=== PATIENT | female | born 1980 | race Caucasian/White ===

== ENCOUNTER 2019-06-01 00:06 | Day surgery (SDC) | payer BC, SELFPAY ==
[2019-05-26 13:32] VITALS: BMI 46.3
[2019-06-01 06:45] VITALS: BP 141/89; PULSE 86; RESP 16; TEMP 36.9; O2SAT 100
[2019-06-01 06:56] LABS: Glucose Point of Care 110 (65-105)
--- NOTE | 2019-06-01 07:15 | PM.HPGS ---
History of Present Illness History of Present Illness Consent: Risks, benefits, and alternatives have been discussed and questions answered. Patient agrees to proceed with procedure. Chief complaint: Neoplasm Screening Narrative: Flavio Bernabe is a 38 year old female With a history of polyps 1 of which was a broad sessile cecal polyp 2 years ago [facility] Family History Family History Mother Hypertension Family history of elevated blood lipids Diabetes mellitus Family history of hypercholesterolemia Family history of gynecological problem Father Family history of diabetes mellitus in first degree relative Diabetes mellitus Carcinoma of colon Other Cerebrovascular accident Family history of allergic disorder Family history of malignant neoplasm Social History Social History Smoking status: Never smoker Alcohol intake: never Meds Home Medications and Allergies Home Medications Medication Instructions Recorded Confirmed Type candesartan 32 1 tablet PO DAILY #90 tablet 02/07/19 06/01/19 Rx mg-hydrochlorothiazide 25 mg tablet icosapent ethyl 1 gram capsule 2 gm PO BID #360 cap 03/24/19 06/01/19 Rx omeprazole magnesium 20 mg 20 mg PO DAILY 03/24/19 06/01/19 History tablet,delayed release sitagliptin 50 mg-metformin 500 mg 1 tablet PO DAILY tablet 03/24/19 06/01/19 History tablet venlafaxine 150 mg 150 mg PO DAILY 03/24/19 06/01/19 History capsule,extended release 24 hr carvedilol 25 mg tablet 25 mg PO BID #180 tablet 05/11/19 06/01/19 Rx Allergies Allergy/AdvReac Type Severity Reaction Status Date / Time CHANDLER Inhibitors Allergy Unknown Unknown Verified 06/01/19 06:43 amoxicillin Allergy Unknown Unknown Verified 06/01/19 06:43 Penicillins Allergy Unknown HIVES Verified 06/01/19 06:43 quinapril Allergy Unknown uknown Verified 06/01/19 06:43 Vital Signs Vital Signs - 24 hr 06/01/19 06:45 Temperature 36.9 C Pulse Rate 86 Respiratory Rate 16 Blood Pressure 141/89 H Pulse Oximetry 100 Exam Resp: Auscultation: clear to auscultation bilaterally Cardio: Rate: regular rate Rhythm: regular rhythm GI: GI Palp: Yes Soft to palpation and No Tenderness to palpation present (GI) Assessment and Plan Assessment and plan (1) History of colon polyps: Code(s): Z86.010 - Personal history of colonic polyps Status: Acute Assessment and Plan: Colonoscopy with possible biopsy or polypectomy or cautery or injection of substances.
[2019-06-01] MEDS: LACTATED RINGERS 1,000 ML 150 ML IV CONT (07:17)
--- NOTE | 2019-06-01 07:20 | WPDANESEPPF ---
Anes - Initial Pre Proc Eval Procedure: Operation Date: 06/01/19 07:30 Proposed Procedures p Screening Colonoscopy - Syed Rhodes MD Date/Time: 06/01/19 07:20 Surgeon: Syed Rhodes MD Pre Op Diagnosis: Neoplasm Screening Patient Data Age: 38 Gender: F Height: 5 ft 7 in Weight: 134.9 kg Last Vital Signs Temp 98.4 F 06/01/19 06:45 Pulse 86 06/01/19 06:45 Resp 16 06/01/19 06:45 BP 141/89 H 06/01/19 06:45 Pulse Ox 100 06/01/19 06:45 Allergies Allergy/AdvReac Type Severity Reaction Status Date / Time CHANDLER Inhibitors Allergy Unknown Unknown Verified 06/01/19 06:43 amoxicillin Allergy Unknown Unknown Verified 06/01/19 06:43 Penicillins Allergy Unknown HIVES Verified 06/01/19 06:43 quinapril Allergy Unknown uknown Verified 06/01/19 06:43 Home Medications Medication Instructions Recorded Confirmed Type candesartan 32 1 tablet PO DAILY #90 tablet 02/07/19 06/01/19 Rx mg-hydrochlorothiazide 25 mg tablet icosapent ethyl 1 gram capsule 2 gm PO BID #360 cap 03/24/19 06/01/19 Rx omeprazole magnesium 20 mg 20 mg PO DAILY 03/24/19 06/01/19 History tablet,delayed release sitagliptin 50 mg-metformin 500 mg 1 tablet PO DAILY tablet 03/24/19 06/01/19 History tablet venlafaxine 150 mg 150 mg PO DAILY 03/24/19 06/01/19 History capsule,extended release 24 hr carvedilol 25 mg tablet 25 mg PO BID #180 tablet 05/11/19 06/01/19 Rx Laboratory Tests 06/01/19 06:53 POC Capillary Glucose 110 mg/dl mg/dl (65-105) Patient hx anesthesia problems: post op nausea/vomiting Family hx anesthesia problems: none PMFSH Past Medical History Medical History (Updated 06/01/19 @ 07:20 by Obey Carmona MD) Essential (primary) hypertension Gastroesophageal reflux disease without esophagitis Morbid obesity KARY on CPAP Type 2 diabetes mellitus without complication, without long-term current use of insulin Family History Family History Mother Hypertension Family history of elevated blood lipids Diabetes mellitus Family history of hypercholesterolemia Family history of gynecological problem Father Family history of diabetes mellitus in first degree relative Diabetes mellitus Carcinoma of colon Other Cerebrovascular accident Family history of allergic disorder Family history of malignant neoplasm Social History Social History Smoking status: Never smoker Alcohol intake: never Anes - Eval Final PreProcedure Day of Procedure 06/01/19 07:20 Patient weight: morbidly obese Heart: regular rate and rhythm Lungs: clear to auscultation Airway: Mallampati scale class II Neurological: alert and oriented Last oral intake: >/= 8 hours ASA classification: IV Emergent: no Anesthetic plan: proceed Anesthesia type and monitoring: general GIVS and standard monitoring Informed Consent: The patient's anesthetic plan and its attendant risks and benefits were discussed with the patient/family/POA. Questions were solicited and answers provided to the satisfaction of the patient/family/POA.
[2019-06-01 07:54] VITALS: BP 136/57; PULSE 86; RESP 16; O2SAT 100
[2019-06-01 08:04] VITALS: BP 121/64; PULSE 85; RESP 17; O2SAT 100
[2019-06-01 08:14] VITALS: BP 124/64; O2SAT 100
== END 2019-06-01 08:34 | disposition home or self-care (01) ==
PROVIDERS: PCP Internal Medicine; Visit Provider Internal Medicine Gastroenterology
PROC: 0DJD8ZZ Inspection of Lower Intestinal Tract, Via Natural or Artificial Opening Endoscopic (ICD-10-PCS; CPT 45378; principal; 2019-06-01 07:30)
DX: Z12.11 Encounter for screening for malignant neoplasm of colon (principal); D12.5 Benign neoplasm of sigmoid colon; I10 Essential (primary) hypertension; E11.9 Type 2 diabetes mellitus without complications; K21.9 Gastro-esophageal reflux disease without esophagitis; G47.33 Obstructive sleep apnea (adult) (pediatric); Z79.84 Long term (current) use of oral hypoglycemic drugs; E66.01 Morbid (severe) obesity due to excess calories; Z68.42 Body mass index [BMI] 45.0-49.9, adult
CPT/HCPCS: 45385; 88305; J2001; J2704; J7120

== ENCOUNTER 2019-07-08 12:03 | Outpatient (CLI) | payer BC, SELFPAY ==
--- NOTE | ~2019-07-08 | US_ITS ---
Please refer to diagnostic mammogram report dated 07/08/2019 for details. Reviewed, dictated and finalized at location A.
--- NOTE | ~2019-07-08 | MM_ITS ---
EXAMINATION: MM diagnostic yoan BI w zeenat HISTORY: Palpable right breast mass TECHNIQUE: Additional 3-D tomosynthesis images of the breasts were performed and synthetic 2-D images were generated. CAD analysis was submitted and interpreted. High resolution right breast ultrasound was performed. COMPARISON: None FINDINGS: MAMMOGRAPHIC FINDINGS: Breast composed of scattered areas of fibroglandular density. There are no suspicious masses, calcifi cations or architectural distortion in either breast to suggest malignancy. ULTRASOUND: Limited right breast ultrasound: In the area of palpable concern at 10:00, 10 cm from the nipple is a superficially located oval hyper echoic mass with some internal heterogeneity. This measures 1.9 x 1.4 x 0.6 cm. No internal vasculari ty or posterior features. IMPRESSION: 1. Oval hyperechoic superficially located mass of the right breast in the area of palpable concern wi thout mammographic correlate. This mass measures 1.9 x 1.4 x 0.6 cm and likely represents a benign li benji. 2. Recommend 6 month follow-up right breast ultrasound BI-RADS category 3, probably benign findings. Reviewed, dictated and finalized at location A. IMPRESSION: 1. Oval hyperechoic superficially located mass of the right breast in the area of palpable concern without mammographic correlate. This mass measures 1.9 x 1. 4 x 0.6 cm and likely represents a benign lipoma. 2. Recommend 6 month follow-up right breast ultrasound BI-RADS category 3, probably benign findings.
== END 2019-07-08 12:04 | disposition home or self-care (01) ==
LOC: ANHIMG 12:06
PROVIDERS: PCP Internal Medicine; Visit Provider Obstetrics & Gynecology
DX: N63.11 Unspecified lump in the right breast, upper outer quadrant (principal); R92.8 Other abnormal and inconclusive findings on diagnostic imaging of breast
CPT/HCPCS: 76642; 77062; 77066; G0279

== ENCOUNTER 2019-10-14 09:26 | Outpatient (CLI) | payer BC, SELFPAY ==
--- NOTE | 2019-10-19 12:29 | SLEEP_ITS ---
Home Sleep Study DATE OF STUDY: 10/14/2019 REASON FOR THIS STUDY: KARY. HISTORY: This patient is a 39-year-old female, 5 feet 8 inches tall weighing 300 pounds with a body mass index of 45.6. After gaining weight, she has been having increasing problems with her sleep. She is not refreshed when she awakens. She occasionally snores. She lives alone so she is not aware of others complain about it. Her grandmother has insomnia. She frequently has trouble sleeping if she has a cold. She does not gasp for breath at night. She rarely sweats excessively at night. She occasionally notices her heart pounding or beating irregularly at night. She frequently falls asleep during the day never involuntarily, never while driving, never with physical effort. She does not have loss of muscle tone with strong emotion. She frequently has daytime difficulty due to excessive sleepiness. She does not feel paralyzed on waking or falling asleep. She occasionally has vivid dreamlike scenes upon awakening or falling asleep. She is rarely afraid to go to sleep. She occasionally has nightmares, occasionally remembers her dreams, occasionally has racing thoughts, feelings of sadness, depression and anxiety. She does not have muscular tension or notices parts of her body jerking. She rarely kicks at night. She does not have crawling and aching feelings in her legs or have leg pain at night. She does not have morning jaw pain. She rarely grinds her teeth during sleep. She is not bothered by pain during the day or awakened by pain at night. She frequently wakes up feeling stiff in the morning with sore achy muscles. She has palpitations and takes antacids regularly. Bedtime is 10 p.m., sometimes taking up to 1 hour to fall asleep waking many times at night. When she does awaken, she will roll over, may wake up for 30 minutes to an hour. She wakes in the morning around 7 a.m. On the weekends, she may stay up an hour later and sleep quite a bit later. Sometimes, she sleeps all day. She frequently naps. A short nap is not refreshing. She is drowsy in the morning for 3 hours or longer. MEDICAL COMORBIDITIES: 1. Hypertension. 2. Diabetes mellitus. 3. Depression. 4. Acid reflux. 5. Panic. MEDICATIONS: 1. Janumet 50/500 daily. 2. Losartan/hydrochlorothiazide 100/25 daily. 3. Carvedilol 25 mg a day. 4. Effexor XR 150 mg a day. 5. Prilosec daily. HABITS: Never smoked tobacco. Caffeine, 2 servings a day. No alcohol. No recreational drugs. DESCRIPTION OF THE STUDY: On the [place] Sleepiness Scale, her score is 10. This was conducted as an unattended type 3 portable home sleep test using 4 channel monitoring including respiratory effort channel, snoring channel, oxygen saturation channel, and heart rate channel. The study was scored using [facility] guidelines. The duration was 5 hours 54 minutes. The apnea-hypopnea index was 0.5, normal. Oxygen desaturation index is 0.2. She had 2 apneas, both were obstructive. She had 1 hypopnea. She had 3060 snoring events and 1 desaturation. Lowest desaturation was 85%. She spent no time below 88%. Pulse ranged from 77 to 116. IMPRESSION: This portable home sleep test does not show evidence of significant sleep-disordered breathing. The apnea-hypopnea index is 0.5. She had transient desaturation to 85%. She had significant snoring over 3000 episodes. She has excessive daytime sleepiness that is out of proportion to the amount of sleep-disordered breathing on this test. Previously November 15, 2016, she had a nocturnal polysomnogram with mild obstructive sleep apnea with apnea-hypopnea index 5.4, but did not decide to move forward with treatment at that time, and on 11/15/2018, with a sleeping aid, her AHI was 3.7 and her REM
== END 2019-10-14 09:27 | disposition home or self-care (01) ==
LOC: ANHCSM 09:26
PROVIDERS: PCP Internal Medicine; Visit Provider Internal Medicine Critical Care Medicine
DX: G47.33 Obstructive sleep apnea (adult) (pediatric) (principal)
CPT/HCPCS: 95806

== ENCOUNTER → 2020-03-13 15:04 | Outpatient (CLI) | payer BC, SELFPAY ==
--- NOTE | ~2020-03-13 | US_ITS ---
US breast RT limited DATE: 03/13/2020 15:38 INDICATION: 10:00 right breast lump follow-up TECHNIQUE: High-resolution ultrasound imaging targeted at 9:00-11:00 10 cm from nipple COMPARISON: 07/08/2019 bilateral diagnostic digital mammogram and limited right breast ultrasound FINDINGS: No suspicious mass or any suspicious shadowing is detected. No cyst or other significant fi nding is noted. IMPRESSION: There is category 1: Negative Recommendation: Routine mammographic screening beginning at age 40 Reviewed, dictated and finalized at Location A. Reviewed, dictated and finalized at location A. IAL EDUCATION PROFESSIONAL
== END ==
PROVIDERS: PCP Internal Medicine; Visit Provider Obstetrics & Gynecology
DX: R92.8 Other abnormal and inconclusive findings on diagnostic imaging of breast (principal)
CPT/HCPCS: 76642

== ENCOUNTER 2020-06-16 07:27 | Outpatient (CLI) | payer BC, SELFPAY ==
--- NOTE | ~2020-06-16 | US_ITS ---
EXAMINATION: US abdomen limited DATE: 06/16/2020 07:49 INDICATION: Elevated liver function tests TECHNIQUE: Multiple grayscale and Doppler ultrasound images of the abdomen were obtained. COMPARISON: 06/11/2016 FINDINGS: The head and body of the pancreas are normal. The pancreatic tail is obscured by bowel gas. The liver demonstrates increased echogenicity, heterogenous echotexture, and decreased through trans mission. No surface nodularity. Normal hepatopetal flow in the main portal vein. The gallbladder is s urgically absent. The normal common bile duct measures 4 mm. IMPRESSION: 1. Diffuse hepatic steatosis. Reviewed, dictated and finalized at location A.
== END 2020-06-16 07:28 ==
LOC: MICIMG 07:28
PROVIDERS: Visit Provider Internal Medicine
DX: R79.89 Other specified abnormal findings of blood chemistry (principal); K76.0 Fatty (change of) liver, not elsewhere classified
CPT/HCPCS: 76705

== ENCOUNTER 2021-03-18 10:23 | Outpatient (CLI) | payer BC, SELFPAY ==
--- NOTE | ~2021-03-18 | XR_ITS ---
EXAMINATION: XR knee LT 3V DATE: 03/18/2021 10:42 INDICATION: Left knee pain. TECHNIQUE: 3 views of left knee including standing views were obtained. COMPARISON: None. FINDINGS: Bone alignment is normal. No fracture. There is mild tricompartment osteoarthritis. There i s a small knee joint effusion. IMPRESSION: 1. Mild left knee osteoarthritis. Reviewed, dictated and finalized at location A. E FARM AGENT
== END 2021-03-18 10:24 ==
PROVIDERS: PCP Internal Medicine; Visit Provider Internal Medicine
DX: M17.12 Unilateral primary osteoarthritis, left knee (principal)
CPT/HCPCS: 73562

== ENCOUNTER → 2022-05-17 08:56 | Outpatient (CLI) | payer BC, SELFPAY ==
--- NOTE | ~2022-05-17 | XR_ITS ---
XR sinus min 3V DATE: 05/17/2022 09:32 INDICATION: Disorder of nasal sinuses TECHNIQUE: todd Hamilton, lateral and submental vertical views COMPARISON: None FINDINGS: The paranasal sinuses and mastoid air cells appear normally developed and aerated. Rightward deviation of nasal septum. Normal sella turcica. Physiologic pineal calcification. IMPRESSION: Normal development and aeration of the paranasal sinuses and mastoid air cells Reviewed, dictated and finalized at location A. ACT LENS CURVE GRINDER IMPRESSION: Normal development and aeration of the paranasal sinuses and mastoi d air cells
--- NOTE | ~2022-05-17 | XR_ITS ---
XR chest 2V DATE: 05/17/2022 09:32 INDICATION: Cough TECHNIQUE: 2 views COMPARISON: None FINDINGS: Normal heart size. No hilar or mediastinal enlargement. No pulmonary infiltrate or consolid ation, pleural effusion or pulmonary vascular congestion or pneumothorax. Status post cholecystectomy. Included skeletal structures are unremarkable. IMPRESSION: No active cardiopulmonary disease Reviewed, dictated and finalized at location A. IGHT SLICING MACHINE OPERATOR
== END ==
PROVIDERS: PCP Internal Medicine; Visit Provider Internal Medicine
DX: R05.9 Cough, unspecified (principal); J34.89 Other specified disorders of nose and nasal sinuses; R09.81 Nasal congestion
CPT/HCPCS: 70220; 71046

== ENCOUNTER 2022-08-04 01:46 | Day surgery (SDC) | payer OTHER, SELFPAY ==
[2022-07-23 10:55] VITALS: BMI 47.6
[2022-08-04 06:48] VITALS: BP 142/89; PULSE 97; RESP 18; TEMP 36.1; O2SAT 100
[2022-08-04] MEDS: LACTATED RINGERS 1,000 ML 150 ML IV CONT (07:04)
[2022-08-04 07:05] LABS: Glucose Point of Care 110 mg/dl (65-105)
--- NOTE | 2022-08-04 07:17 | PM.HPGS ---
History of Present Illness History of Present Illness Consent: Risks, benefits, and alternatives have been discussed and questions answered. Patient agrees to proceed with procedure. Chief complaint: hx colon polyps, family hx colon ca Narrative: Flavio Bernabe is a 41 year old female With family history of colon cancer. She had 2 polyps removed by me 5 years ago. Then she had 1 adenoma removed about 3 years ago. Review of Systems Review of Systems: All systems reviewed & are unremarkable except as noted in HPI and below PMFSH Past Medical History Medical History Abnormal bowel movement Allergy to CHANDLER inhibitors Anxiety Arthritis Body mass index (BMI) 40.0-44.9, adult Body mass index (BMI) 45.0-49.9, adult Cough Diabetes mellitus Diarrhea Dyslipidemia Elevated C-reactive protein (CRP) Elevated LFTs Encounter for preventive health examination Encounter for routine adult health examination without abnormal findings Epicondylitis Epicondylitis, lateral Epigastric pain Essential (primary) hypertension Fatty liver Frequent headaches Gastroesophageal reflux disease without esophagitis GERD (gastroesophageal reflux disease) Hypersomnolence Hypertension Itchy skin Left knee pain Lump of right breast Microcytic anemia Morbid obesity Nausea and vomiting Non-restorative sleep On group home drug therapy KARY (obstructive sleep apnea) KARY on CPAP Osteoarthritis of left knee Rash in adult Stress Tinea Type 2 diabetes mellitus without complication, without long-term current use of insulin Surgical History Surgical History S/P appendectomy S/P carpal tunnel release S/P cholecystectomy S/P sinus surgery Family History Family History Mother Hypertension Family history of elevated blood lipids Diabetes mellitus Family history of hypercholesterolemia Family history of gynecological problem Depression Family history of thyroid disease Father Family history of diabetes mellitus in first degree relative Diabetes mellitus Carcinoma of colon Other Cerebrovascular accident Family history of allergic disorder Family history of malignant neoplasm Social History Social History Smoking status: Never smoker Second hand tobacco smoke exposure: No Alcohol intake: never Substance use: never Lack of Transportation: No Lack of Food: Never True Current Housing: I Have Housing Concerned About Future Housing: No Difficulty Paying Gas/Electric Bills: No Difficulty Paying for Meds: No Currently Unemployed: No Education: Bachelor's Degree Difficulty w/ Childcare or Family Care: No Living arrangements: with family Occupation/Education: occupation 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 Gender identity (if verbalized by the patient): Female Spiritual care concerns: No Meds Home Medications and Allergies Home Medications Medication Instructions Recorded Confirmed Type omeprazole magnesium 20 mg 20 mg PO DAILY 03/24/19 07/23/22 History tablet,delayed release (Prilosec OTC) desogestrel 0.15 mg-ethinyl 1 tablet PO DAILY 03/28/21 07/23/22 History estradiol 0.03 mg tablet (Apri) atorvastatin 10 mg tablet See Rx Instructions .Route 06/17/21 07/23/22 Rx .COMPLEX #90 tabs candesartan 32 1 tablet PO DAILY 12/03/21 07/23/22 History mg-hydrochlorothiazide 12.5 mg tablet cholecalciferol (vitamin D3) 50 50 mcg PO DAILY 12/03/21 07/23/22 History mcg (2,000 unit) capsule semaglutide 14 mg tablet (Rybelsus) See Rx Instructions .Route 05/07/22 07/23/22 Rx .COMPLEX #90 tabs carvedilol 25 mg tablet See Rx Instructions .Route 05/14/22 07/23/22 Rx .COMPLEX #180 tabs dapagliflozin 5 mg-metformin ER See Rx Instructions .
--- NOTE | 2022-08-04 07:21 | WPDANESEPPF ---
Anes - Initial Pre Proc Eval Procedure: Operation Date: 08/04/22 08:00 Proposed Procedures p Colonoscopy - Syed Rhodes MD Date/Time: 08/04/22 07:21 Surgeon: Syed Rhodes MD Pre Op Diagnosis: hx colon polyps, family hx colon ca Patient Data Age: 41 Gender: F Height: 1.7 m Weight: 134.5 kg Last Vital Signs Temp 97 F L 08/04/22 06:48 Pulse 97 08/04/22 06:48 Resp 18 08/04/22 06:48 BP 142/89 H 08/04/22 06:48 Pulse Ox 100 08/04/22 06:48 O2 Del Method Room Air 08/04/22 06:48 Allergies Allergy/AdvReac Type Severity Reaction Status Date / Time CHANDLER Inhibitors Allergy Unknown Hives Verified 08/04/22 06:47 amoxicillin Allergy Unknown Hives Verified 08/04/22 06:47 Penicillins Allergy Unknown HIVES Verified 08/04/22 06:47 quinapril Allergy Unknown Hives Verified 08/04/22 06:47 Home Medications Medication Instructions Recorded Confirmed Type omeprazole magnesium 20 mg 20 mg PO DAILY 03/24/19 07/23/22 History tablet,delayed release (Prilosec OTC) desogestrel 0.15 mg-ethinyl 1 tablet PO DAILY 03/28/21 07/23/22 History estradiol 0.03 mg tablet (Apri) atorvastatin 10 mg tablet See Rx Instructions .Route 06/17/21 07/23/22 Rx .COMPLEX #90 tabs candesartan 32 1 tablet PO DAILY 12/03/21 07/23/22 History mg-hydrochlorothiazide 12.5 mg tablet cholecalciferol (vitamin D3) 50 50 mcg PO DAILY 12/03/21 07/23/22 History mcg (2,000 unit) capsule semaglutide 14 mg tablet (Rybelsus) See Rx Instructions .Route 05/07/22 07/23/22 Rx .COMPLEX #90 tabs carvedilol 25 mg tablet See Rx Instructions .Route 05/14/22 07/23/22 Rx .COMPLEX #180 tabs dapagliflozin 5 mg-metformin ER See Rx Instructions .Route 06/30/22 07/23/22 Rx 1,000 mg tablet,extended release .COMPLEX #90 tabs 24hr (Xigduo XR) venlafaxine 150 mg See Rx Instructions .Route 07/02/22 07/23/22 Rx capsule,extended release 24 hr .COMPLEX #90 caps triamcinolone acetonide 55 mcg 2 spray intranasal DAILY PRN 07/23/22 07/23/22 History nasal spray aerosol (Nasacort) allergies Laboratory Tests 08/04/22 07:02 POC Capillary Glucose 110 H mg/dl (65-105) Patient hx anesthesia problems: post op nausea/vomiting Family hx anesthesia problems: none Results Review: All pre-operative results and documents have been reviewed as part of the pre-operative evaluation. [facility] Past Medical History Medical History Abnormal bowel movement Allergy to CHANDLER inhibitors Anxiety Arthritis Body mass index (BMI) 40.0-44.9, adult Body mass index (BMI) 45.0-49.9, adult Cough Diabetes mellitus Diarrhea Dyslipidemia Elevated C-reactive protein (CRP) Elevated LFTs Encounter for preventive health examination Encounter for routine adult health examination without abnormal findings Epicondylitis Epicondylitis, lateral Epigastric pain Essential (primary) hypertension Fatty liver Frequent headaches Gastroesophageal reflux disease without esophagitis GERD (gastroesophageal reflux disease) Hypersomnolence Hypertension Itchy skin Left knee pain Lump of right breast Microcytic anemia Morbid obesity Nausea and vomiting Non-restorative sleep On intermediate drug therapy KARY (obstructive sleep apnea) KARY on CPAP Osteoarthritis of left knee Rash in adult Stress Tinea Type 2 diabetes mellitus without complication, without long-term current use of insulin Surgical History Surgical History S/P appendectomy S/P carpal tunnel release S/P cholecystectomy S/P sinus surgery Family History Family History Mother Hypertension Family history of elevated blood lipids Diabetes mellitus Family history of hypercholesterolemia Family history of gynecological problem Depression Family history of thyroid disease Father Family history of diabetes mellitus in fir
[2022-08-04] MEDS: ACETAMINOPHEN 500 MG TABLET 1000 MG PO (07:30)
[2022-08-04 08:05] VITALS: BP 121/72; PULSE 90; RESP 23; O2SAT 100
[2022-08-04 08:15] VITALS: BP 140/88; PULSE 88; RESP 17; O2SAT 100
[2022-08-04 08:25] VITALS: BP 142/90; PULSE 82; RESP 22; O2SAT 100
== END 2022-08-04 08:30 | disposition home or self-care (01) ==
PROVIDERS: PCP Internal Medicine; Visit Provider Internal Medicine Gastroenterology
PROC: 0DJD8ZZ Inspection of Lower Intestinal Tract, Via Natural or Artificial Opening Endoscopic (ICD-10-PCS; CPT 45378; principal; 2022-08-04 08:00)
DX: Z12.11 Encounter for screening for malignant neoplasm of colon (principal); K62.1 Rectal polyp; Z80.0 Family history of malignant neoplasm of digestive organs; E11.9 Type 2 diabetes mellitus without complications; I10 Essential (primary) hypertension; E78.5 Hyperlipidemia, unspecified; K21.9 Gastro-esophageal reflux disease without esophagitis; G47.33 Obstructive sleep apnea (adult) (pediatric); Z79.84 Long term (current) use of oral hypoglycemic drugs; F41.9 Anxiety disorder, unspecified; E66.01 Morbid (severe) obesity due to excess calories; Z68.42 Body mass index [BMI] 45.0-49.9, adult
CPT/HCPCS: 45380; 82948; 88305; A9270; J2704; J7120

== ENCOUNTER 2023-02-18 08:54 | Outpatient (CLI) | payer OTHER, SELFPAY ==
--- NOTE | ~2023-02-18 | MM_ITS ---
EXAMINATION: MM screening yoan BI w zeenat HISTORY: Screening mammogram TECHNIQUE: Craniocaudal and mediolateral oblique 3-D tomosynthesis images were obtained and synthetic 2-D images were generated. CAD analysis was submitted and interpreted. COMPARISON: No prior mammogram is available for comparison at this institution. BREAST PARENCHYMAL COMPOSITION: The breasts are almost entirely fatty. FINDINGS: There is no evidence of suspicious mass, calcification, or architectural distortion to sugg est malignancy in either breast. There has been no suspicious interval change. IMPRESSION: 1. No mammographic evidence of malignancy. 2. Recommend routine screening mammography in one year. BI-RADS Category 1: Negative Reviewed, dictated and finalized at location A. ICAL THERAPY ASST
== END 2023-02-18 08:55 | disposition home or self-care (01) ==
PROVIDERS: PCP Internal Medicine; Visit Provider Obstetrics & Gynecology
DX: Z12.31 Encounter for screening mammogram for malignant neoplasm of breast (principal)
CPT/HCPCS: 77063; 77067

== ENCOUNTER 2023-07-13 09:15 | Outpatient (CLI) | payer OTHER, SELFPAY ==
--- NOTE | ~2023-07-13 | US_ITS ---
US abdomen limited INDICATION: Fatty infiltration of the liver. PROCEDURE: Realtime right upper abdominal ultrasound. COMPARISON: No prior studies for comparison. FINDINGS: The pancreas is normal without focal mass or pancreatic ductal dilation. Liver echotexture is normal without focal mass or intrahepatic biliary dilatation. There is normal directional flow i n the portal vein. Gallbladder is surgically absent. Common bile duct measures 3 mm. No sonographic Manuel's sign. IMPRESSION: 1: Unremarkable limited abdominal ultrasound. Reviewed, dictated and finalized at location B.
== END 2023-07-13 09:16 ==
LOC: MICIMG 09:16
PROVIDERS: PCP Internal Medicine; Visit Provider Internal Medicine
DX: K76.0 Fatty (change of) liver, not elsewhere classified (principal)
CPT/HCPCS: 76705

== ENCOUNTER 2024-06-07 14:59 | Outpatient (CLI) | payer OTHER, SELFPAY ==
--- NOTE | ~2024-06-07 | MM_ITS ---
EXAMINATION: MM screening yoan BI w zeenat HISTORY: Screening TECHNIQUE: Craniocaudal and mediolateral oblique 3-D tomosynthesis images were obtained and synthetic 2-D images were generated. CAD analysis was submitted and interpreted. COMPARISON: Comparison to multiple prior studies sequentially, with oldest reviewed study dated 07/07. BREAST PARENCHYMAL COMPOSITION: Not Dense: The breasts are almost entirely fatty. FINDINGS: There is no evidence of suspicious mass, calcification, or architectural distortion to sugg est malignancy in either breast. There has been no suspicious interval change. IMPRESSION: 1. No mammographic evidence of malignancy. 2. Recommend routine screening mammography in one year. BI-RADS Category 1: Negative Reviewed, dictated and finalized at location B.
--- OUTSIDE RECORDS SUMMARY | 2024-06-07 16:56 | XMS_ITS | Clinical Summary ---
Author Organization [facility] [employer] Address [address] [place] [address] Care Team Providers Care Salad Counter Attendant Name Role Phone Raffy Higginbotham MD Primary Care Provider [phone] Ly Espitia RN Unavailable [facility] Source Comments [facility],non-owned Affiliates and Associated Physician Practices is amultiple site organization consisting of ambulatory clinics and hospital sitesin [place], [place], [place] and [place]. This disclosure is being madepursuant to the Care Everywhere program and may not contain all information available regarding this patient. Last updated 17.[facility] Allergies Active Allergy Reactions Criticality Noted Date Comments Quinapril Urticaria Medium 05/26/2017 Penicillins Urticaria Medium 05/26/2017 Medications * Be aware that medications may not be up to date on this document. Alwaysverify current medications with the patient. Medication Sig Dispensed Refills Start Date End Date Status Dapagliflozin Propanediol (FARXIGA PO) Take 10 mg by mouth once daily Active omeprazole EC (PRILOSEC OTC) 20 MG tablet Take 20 mg by mouth daily before breakfast Active SITagliptin-metFORMIN (JANUMET) 50-500 MG tablet Take 1 tablet by mouth once daily Active carvedilol (COREG) 12.5 MG tablet Take 12.5 mg by mouth 2 times daily with morning and evening meal Active desogestrel-ethinyl estradiol (ORTHO-CEPT; DESOGEN; APRI; SOLIA; RECLIPSEN) 0.15-30 MG-MCG tablet Take 1 tablet by mouth once daily Active losartan 100 MG TABS 100 mg, hydroCHLOROthiazide 12.5 MG TABS 12.5 mg Take by mouth once daily Active Venlafaxine HCl (VENLAFAXINE ER 24HR) 150 MG tablet Take 150 mg by mouth daily with breakfast Active amLODIPine (NORVASC) 5 MG tablet Take 5 mg by mouth once daily Active oxyCODONE-acetaminophen (PERCOCET) 5-325 MG tablet Take 1 tablet by mouth every 4 hours as needed for Pain 30 tablet 05/29/2017 Active Social History Tobacco Use Types Packs/Day Years Used Date Smoking Tobacco: Never Smokeless Tobacco: Never Alcohol Use Standard Drinks/Week Comments No 0 (1 standard drink = 0.6 oz pur e alcohol) Sex and Gender Information Value Date Recorded Sex Assigned at Not on file Gender Identity Not on file Sexual Orientation Not on file Last Filed Vital Signs Vital Sign Reading Time Taken Comments Blood Pressure 149/96 06/11/2017 2:55 PM CDT Pulse 100 06/11/2017 2:55 PM CDT Temperature 36.1 C (97 F) 06/11/2017 2:55 PM CDT Respiratory Rate 18 05/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 Oxygen Saturation 97% 06/11/2017 2:55 PM CDT Inhaled Oxygen Concentration - - Weight 137.9 kg (304 lb) 06/11/2017 2:55 PM CDT Height 170.2 cm (5' 7 ) 06/11/2017 2:55 PM CDT Body Mass Index 47.61 06/11/2017 2:55 PM CDT Plan of Treatment Health Maintenance Due Date Last Done Comments LIPID TESTING 1981 MAMMOGRAM 1981 PAP SMEAR 1981 HIV SCREENING 1996 HEPATITIS C SCREENING 10/09/1999 DTAP/TDAP/TD VACCINES (1 - Tdap) 2000 HEPATITIS B VACCINE (1 of 3 - 19+ 3-dose series) 2000 COVID-19 VACCINE ( - 2023-2 5 season) 2023 INFLUENZA VACCINE (#1) 2023 DEPRESSION SCREENING 03/23/2024 ZOSTER VACCINE (1 of 2) 10/14/2031 HIB VACCINE Aged Out No longer eligi ble based on patient's age to complete this topic HPV VACCINE Aged Out No longer eligi ble based on patient's age to complete this topic MENINGOCOCCAL (Group B) VACC INE SHARED DECISION-MAKING Aged Out No longer eligibl e based on patient's age to complete this topic MENINGOCOCCAL GROUPS A/C/Y/W VACCINE Aged Out No longer eligible b ased on patient's age to complete this topic PNEUMOCOCCAL VACCINE Aged Out No long er eligible based on patient's age to complete this topic Care Teams Salad Counter Attendant Relationship Specialty Start Date End Date Raffy Higginbotham MD [address] [place] [address] PCP - General Internal Medicine 04/29/17 Ly Espitia, RN 05/29/17
--- OUTSIDE RECORDS SUMMARY | 2024-06-07 16:56 | XMS_ITS | Encounter Summary ---
Author Organization [facility] Address [address] [place] [address] Care Team Providers Care Environmental Planner Name Role Phone Raffy Higginbotham MD Primary Care Provider [phone] Ly Espitia RN Unavailable Unavailabl e Encounter Details Date Type Department Care Team (Late st Contact Info) Description 01/21/2022 Lab Requisition [facility] [address] [place] [address] Theresa Clement DO [address] DEPT [place] [address] Social History Tobacco Use Types Packs/Day Years Used Date Smoking Tobacco: Never Smokeless Tobacco: Never Alcohol Use Standard Drinks/Week Comments No 0 (1 standard drink = 0.6 oz pur e alcohol) Sex and Gender Information Value Date Recorded Sex Assigned at Not on file Gender Identity Not on file Sexual Orientation Not on file documented as of this encounter Plan of Treatment Not on file documented as of this encounter Procedures Procedure Name Priority Date/Time Associated Diagnosis Comments DERMATOPATHOLOGY Routine 01/20/2022 12:0 0 AM CDT documented in this encounter Results * DERMATOPATHOLOGY (01/20/2022 12:00 AM CDT) Case Report Dermatopathology Report Case: [id number] Authorizing Provider: Theresa Clement DO Collected: 01/20/2022 12:00 AM Ordering Location: [facility] Received: 01/21/2022 09:12 AM Pathologist: Andria Borja MD Specimen: Skin, right posterior neck 1:43 PM CDT DERMATOPATHOLOGY LABORATORY Final Diagnosis Specimen A. SKIN, right posterior neck: INTRADERMAL MELANOCYTIC NEVUS (D22.4) 2 1:43 PM CDT DERMATOPATHOLOGY LABORATORY Clinical History R/O: Irritated Nevus 1:43 PM CDT DERMATOPATHOLOGY LABORATORY Gross Description Specimen A: Received is one formalin filled container labeled with the patient's name and designated right posterior neck. The specimen consists of a shave biopsy measuring [id number] and it is bisected. Jar 0. 1:43 PM CDT DERMATOPATHOLOGY LABORATORY Microscopic Description Specimen A. SKIN, right posterior neck: There are nests of cytologically bland melanocytes within the dermis that mature with depth. 1:43 PM CDT DERMATOPATHOLOGY LABORATORY Disclaimer An external and internal positive and negative controls are appropriate for the histochemical, immunohistochemical and immunofluorescence stain(s) in this case (if any), except where stated explicitly. The performance characteristics of the stain(s) cited in this report were developed and its performance characteristic determined by the Dermatopathology Laboratory at [facility], directed by Dr. Anastacia Wood. These tests need not be, and therefore are not, approved by the [place] Food and Drug Administration. The tests are used for clinical purposes. Billing Codes Specimen Charges Stain Charges 58803 1 2 1:43 PM CDT DERMATOPATHOLOGY LABORATORY Embedded Images 1:43 PM CDT DERMATOPATHOLOGY LABORATORY Pathology/Cytolog y TISSUE SPECIMEN FROM SKIN / Unknown 01/20/2022 01/21/2022 9:12 AM CDT Theresa Clement DO LAB - PATHOLOGY/C YTOLOGY ORDERABLES DERMATOPATHOLOGY LABORATORY [facility] - Department of Dermatology [address] Floor [place] [id number] [place] [address] documented in this encounter Visit Diagnoses Not on filedocumented in this encounter Care Teams Environmental Planner Relationship Specialty Start Date End Date Raffy Higginbotham MD [address] [place] [id number] PCP - General Internal Medicine 04/29/17 Ly Espitia, RN 05/29/17 documented as of this encounter
== END 2024-06-07 15:00 | disposition home or self-care (01) ==
PROVIDERS: PCP Internal Medicine; Visit Provider Obstetrics & Gynecology
DX: Z12.31 Encounter for screening mammogram for malignant neoplasm of breast (principal)
CPT/HCPCS: 77063; 77067

== ENCOUNTER 2024-06-17 07:56 | Outpatient (CLI) | payer OTHER, SELFPAY ==
--- NOTE | ~2024-06-17 | US_ITS ---
US thyroid INDICATION: Thyroid fullness TECHNIQUE: Real-time sonographic images of the thyroid gland were obtained. COMPARISON: No prior studies for comparison. FINDINGS: The right thyroid lobe measures 5.9 x 1.9 x 2.5 cm. The left thyroid lobe measures 4.5 x 1 .7 x 1.8 cm. There is heterogeneous echotexture and echogenicity throughout the thyroid gland. No mas s identified in the right lobe. In the left lobe there is a small 5 mm cyst. No suspicious masses to suggest malignancy. No discrete nodules identified. Normal vascular flow is present. IMPRESSION: 1. No abnormal masses meet sonographic criteria for biopsy. 5 mm cyst present in the left lobe. Reviewed, dictated and finalized at location A.
== END 2024-06-17 07:57 | disposition home or self-care (01) ==
LOC: MICIMG 07:57
PROVIDERS: PCP Internal Medicine; Visit Provider Internal Medicine
DX: E04.1 Nontoxic single thyroid nodule (principal); E07.89 Other specified disorders of thyroid; R94.6 Abnormal results of thyroid function studies
CPT/HCPCS: 76536

== ENCOUNTER 2025-02-24 08:05 | Outpatient (CLI) | payer OTHER, SELFPAY ==
--- NOTE | ~2025-02-24 | XR_ITS ---
XR mandible min 4V 02/24/2025 09:17 Indication: Cervicalgia Procedure: 4 view mandible Comparison: No prior studies for comparison. Findings: No fracture, subluxation or dislocation. No soft tissue abnormality. No foreign bodies. Impression: 1: No significant abnormality of the mandible. Reviewed, dictated and finalized at location I. LY REUNIFICATION SPECIALIST Impression: 1: No significant abnormality of the mandible.
--- NOTE | ~2025-02-24 | XR_ITS ---
XR cervical spine 4-5V 02/24/2025 09:17 Indication: Cervicalgia Procedure: 6 view cervical spine Comparison: No prior studies for comparison. Findings: Vertebral body heights are maintained. No significant disc narrowing. No prevertebral soft tissue swelling. No alteration of alignment with flexion/extension. Lung apices are normal. Normal cervical alignment. Odontoid process is normal. Impression: 1: No significant abnormality of the cervical spine. Reviewed, dictated and finalized at location I. MOLD TESTER Impression: 1: No significant abnormality of the cervical spine.
--- NOTE | ~2025-02-24 | XR_ITS ---
EXAMINATION: XR TMJ BI DATE: 02/24/2025 09:17 INDICATION: Right temporomandibular joint area throbbing. Neck pain. TECHNIQUE: Open and closed mouth views of the bilateral temporomandibular joints for a total of 4 views were obtained. COMPARISON: None. FINDINGS: The mandibular condyles are normal in morphology. There is normal anterior translation of the mandibular condyles with the mouth open. IMPRESSION: 1. Normal temporomandibular joints. Reviewed, dictated and finalized at location E. Y TO WEAR DEPARTMENT MANAGER
== END 2025-02-24 08:06 | disposition home or self-care (01) ==
LOC: MICIMG 08:06
PROVIDERS: PCP Internal Medicine; Visit Provider Internal Medicine
DX: M54.2 Cervicalgia (principal)
CPT/HCPCS: 70110; 70330; 72050

== ENCOUNTER 2025-03-08 13:41 | Outpatient (CLI) | payer OTHER, SELFPAY ==
--- NOTE | ~2025-03-08 | US_ITS ---
EXAMINATION: US carotid duplex BI DATE: 03/08/2025 14:10 INDICATION: Neck pain TECHNIQUE: Grayscale, color Doppler, and pulsed Doppler images of the cervical carotid arteries were obtained. The degree of vessel stenosis is placed in one of the following categories: normal, <50%, 50-69%, >=70% but less than near- occlusion, near-occlusion, or total occlusion. Note that percent stenosis relative to normal distal artery lumen diameter is indirectly measured from velocity measurements as described by Lloyd, et al. Radiology 2003; 229:340-346. COMPARISON: None. FINDINGS: RIGHT: The right common carotid artery (CCA) peak systolic velocity (PSV) is 92 cm/s. The right internal carotid artery (ICA) PSV is 66 cm/s. The right ICA end- diastolic velocity (EDV) is 21 cm/s. The right ICA/CCA PSV ratio is 0.7. Grayscale and color Doppler images yield an estimate of less than 50% diameter reduction from plaque in the ICA. There is antegrade flow in the right vertebral artery. LEFT: The left CCA PSV is 87 cm/s. The left ICA PSV is 71 cm/s. The left ICA EDV is 26 cm/s. The left ICA/CCA PSV ratio is 0.8. Grayscale and color Doppler images yield an estimate of less than 50% diameter reduction from plaque in the ICA. There is antegrade flow in the left vertebral artery. IMPRESSION: 1. Less than 50% stenosis in the right internal carotid artery. 2. Less than 50% stenosis in the left internal carotid artery. Reviewed, dictated and finalized at location A. GER FLORAL
== END 2025-03-08 13:42 | disposition home or self-care (01) ==
LOC: MICIMG 13:41
PROVIDERS: PCP Internal Medicine; Visit Provider Internal Medicine
DX: I65.23 Occlusion and stenosis of bilateral carotid arteries (principal)
CPT/HCPCS: 93880